=== PATIENT | male | born 1985 | race Two or more races ===

== ENCOUNTER 2018-07-24 18:33 | Emergency (ER) | payer SELFPAY ==
[~2018-07-24] VITALS: Ht 172.7 cm; Wt 68.0 kg
[2018-07-24 18:35] VITALS: BP 128/88
[2018-07-24 19:35] LABS: BASOPHILS % (AUTO) 0.6 % (0.0-2.0); HEMATOCRIT 39.5 % (42.0-52.0); HEMOGLOBIN 13.2 G/DL (14.2-18.0); LYMPHOCYTES % (AUTO) 25.3 % (20.0-45.0); MEAN CORPUSCULAR VOLUME 95 FL (80-99); MONOCYTES % (AUTO) 6.6 % (1.0-10.0); NEUTROPHILS % (AUTO) 66.5 % (45.0-75.0); PLATELET COUNT 263 K/UL (150-450); RED BLOOD COUNT 4.17 M/UL (4.70-6.10); RED CELL DISTRIBUTION WIDTH 11.2 % (11.6-14.8); WHITE BLOOD COUNT 7.7 K/UL (4.8-10.8)
[2018-07-24 19:36] LABS: ANION GAP 8 mmol/L (5-15); BLOOD UREA NITROGEN 7 mg/dL (7-18); CARBON DIOXIDE 29 MMOL/L (21-32); CHLORIDE 103 MMOL/L (98-107); CREATININE 0.8 MG/DL (0.55-1.30); POTASSIUM 3.2 MMOL/L (3.5-5.1); SODIUM 140 MMOL/L (136-145)
[2018-07-24 19:42] LABS: ALANINE AMINOTRANSFERASE 70 U/L (12-78); ALBUMIN/GLOBULIN RATIO 1.1 (1.0-2.7); ALKALINE PHOSPHATASE 113 U/L (46-116); ASPARTATE AMINO TRANSFERASE 42 U/L (15-37); BILIRUBIN,TOTAL 0.7 MG/DL (0.2-1.0)
--- NOTE | 2018-07-24 21:19 | Emergency Room Report ---
History of Present Illness General Chief Complaint: Alcohol Intoxication Present Illness HPI Mr. Duran presents with altered mental status due to alcohol intoxication. Police contacted EMS to bring patient to ED. Patient is belligerent with slurred speech. Not cooperative with hx taking. Allergies: Coded Allergies: UNABLE TO ASSESS (Unverified , 07/24/18) pt. is not cooperative Patient History Past Medical History: other - not cooperative Review of Systems All Other Systems: limited - acute intoxication Physical Exam Vital Signs Date Time Temp Pulse Resp B/P (MAP) Pulse Ox O2 Delivery O2 Flow Rate FiO2 07/24/18 18:26 86 18 128/88 100 07/24/18 18:35 98.0 98.0 Sp02 EP Interpretation: reviewed, normal General Appearance: no apparent distress, non-toxic, other - slurred speech loud and belligerent strong odor of alcohol on person Head: normocephalic, atraumatic Eyes: bilateral eye normal inspection, bilateral eye PERRL ENT: hearing grossly normal, normal pharynx, no angioedema, normal voice Neck: full range of motion, supple/symm/no masses Respiratory: chest non-tender, lungs clear, normal breath sounds, speaking full sentences Cardiovascular #1: regular rate, rhythm, no edema, no gallop, no JVD, no murmur , no rub Gastrointestinal: normal bowel sounds, non tender, soft, non-distended, no guarding, no rebound Neurologic: responsive, motor strength/tone normal, sensory intact, other - oriented to name Psychiatric: other - belligerent Skin: normal color, no rash, warm/dry, well hydrated Lymphatic: no adenopathy Medical Decision Making Diagnostic Impression: Primary Impression: Acute alcoholic intoxication ER Course Mr. Duran presents with altered mental status due to acute alcohol intoxication. Will be discharged by my colleague once clinically sober. I reviewed labs obtained. Last Vital Signs Date Time Temp Pulse Resp B/P (MAP) Pulse Ox O2 Delivery O2 Flow Rate FiO2 07/24/18 18:35 98.0 18 128/88 100 98.0 07/24/18 18:26 86 Disposition: HOME, SELF-CARE Condition: Stable Referrals: NOT CHOSEN IPA/,REFERRING (PCP) Patient Instructions: Alcohol Use Disorder, Alcohol Intoxication Dimple Gilman MD Jul 24, 2018 21:19
[2018-07-24 22:15] VITALS: BP 106/71
[2018-07-24 22:20] VITALS: BP 128/88
== END 2018-07-24 22:20 | disposition home or self-care (01) ==
LOC: EDBD 18:33 → EMR 19:03
DX: R41.82 Altered mental status, unspecified (principal); F10.129 Alcohol abuse with intoxication, unspecified
CPT/HCPCS: 36415; 80053; 80307; 85025; 96360; 99284; G0480; 80329